=== PATIENT | female | born 1985 | race Hispanic/Latino ===

== ENCOUNTER 2021-02-09 21:39 | Emergency (ER) | payer OTHER ==
[2021-02-09 22:59] LABS: Absolute Lymphocytes (CBC) 1.2 K/uL (0.7-4.9); Basophils % 0.3 % (0-1.3); Hematocrit 33.2 % (36.0-45.0); Lymphocytes % 34.1 % (15.3-44.8); MPV 10.3 fL (7.6-11.3)
[2021-02-09 23:01] LABS: Protime INR 1.02
[2021-02-09] MEDS ORDERED: FAMOTIDINE 20 MG/2 ML VIAL IV ONE (23:01)
[2021-02-09] MEDS ORDERED: AZITHROMYCIN 500 MG INJ IVPB ONE (23:01)
[2021-02-09] MEDS ORDERED: ASPIRIN EC 81 MG TAB PO ONE (23:01)
[2021-02-09] MEDS ORDERED: NA CHLORIDE 0.9% 1,000 ML ONE (23:02)
[2021-02-09] MEDS ORDERED: NA CHLORIDE 0.9% 250 ML ONE (23:16)
[2021-02-09 23:28] LABS: Anisocytosis 1+; Blood Morphology Comment NOTED (NOT SEEN); Elliptocytes 1+; Hypochromasia 1+; Platelet Estimate ADEQ; Spherocyte 1+; White Blood Cell Scan OK (OK)
--- NOTE | 2021-02-10 01:30 | EDPHYS ---
Physician Documentation [facility] Name: Florencio Daly Age: 35 yrs Sex: Female : 1985 Arrival Date: 02/09/2021 Time: 21:44 Bed 10 Private MD: Chris Landon ED Physician Cam Faust HPI: 02/09 23:46 This 35 yrs old Female presents to ER via Ambulatory with complaints of tonny Dizziness, Diarrhea. 23:46 The patient presents with dizziness, generalized weakness, lightheadedness. Onset: The tonny symptoms/episode began/occurred 6 day(s) ago. Context: occurred at home. Modifying factors: The symptoms are alleviated by nothing. Associated signs and symptoms: The patient has no apparent associated signs or symptoms. Severity of symptoms: At their worst the symptoms were mild moderate in the emergency department the symptoms are unchanged. Patient's baseline: Neuro:. The patient has not experienced similar symptoms in the past. 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 - Social history:: Smoking status: Patient denies any tobacco usage or history of. - Family history:: not pertinent. ROS: 23:46 Constitutional: Negative for fever, chills, and weight loss, Eyes: Negative for injury, tonny pain, redness, and discharge, ENT: Negative for injury, pain, and discharge, Neck: Negative for injury, pain, and swelling, Cardiovascular: Negative for chest pain, palpitations, and edema, Back: Negative for injury and pain, : Negative for injury, bleeding, discharge, and swelling, MS/Extremity: Negative for injury and deformity, Skin: Negative for injury, rash, and discoloration, Neuro: Negative for headache, weakness, numbness, tingling, and seizure, Psych: Negative for depression, anxiety, suicide ideation, homicidal ideation, and hallucinations, Allergy/Immunology: Negative for hives, rash, and allergies, Endocrine: Negative for neck swelling, polydipsia, polyuria, polyphagia, and marked weight changes, Hematologic/Lymphatic: Negative for swollen nodes, abnormal bleeding, and unusual bruising. 23:46 Respiratory: Positive for cough, "sounds productive". 23:46 Abdomen/GI: Positive for diarrhea. Exam: 23:46 Constitutional: This is a well developed, well nourished patient who is awake, alert, tonny and in no acute distress. Head/Face: Normocephalic, atraumatic. Eyes: Pupils equal round and reactive to light, extra-ocular motions intact. Lids and lashes normal. Conjunctiva and sclera are non-icteric and not injected. Cornea within normal limits. Periorbital areas with no swelling, redness, or edema. ENT: Nares patent. No nasal discharge, no septal abnormalities noted. Tympanic membranes are normal and external auditory canals are clear. Oropharynx with no redness, swelling, or masses, exudates, or evidence of obstruction, uvula midline. Mucous membranes moist. Neck: Trachea midline, no thyromegaly or masses palpated, and no cervical lymphadenopathy. Supple, full range of motion without nuchal rigidity, or vertebral point tenderness. No Meningismus. Chest/axilla: Normal chest wall appearance and motion. Nontender with no deformity. No lesions are appreciated. Cardiovascular: Regular rate and rhythm with a normal S1 and S2. No gallops, murmurs, or rubs. Normal PMI, no JVD. No pulse deficits. Respiratory: Lungs have equal breath sounds bilaterally, clear to auscultation and percussion. No rales, rhonchi or wheezes noted. No increased work of breathing, no retractions or nasal flaring. Abdomen/GI: Soft, non-tender, with normal bowel sounds. No distension or tympany. No guarding or rebound. No evidence of tenderness throughout. Back: No spinal tenderness. No costovertebral tenderness. Full range of motion. Pelvic Exam: Normal external genitalia. Speculum exam with closed cervical os, no discharge or bleeding noted. Bimanual exam with normal adnexa, no adnexal or cervical motion tenderness. Normal uterus. Skin: Warm, dry with normal turgor. Normal color with no rashes, no lesions, and no evidence of cellulitis. MS/ Extremity: Pulses equal, no cyanosis. Neurovascular intact. Full, normal range of motion. Neuro: Awake and alert, GCS 15, oriented to person, place, time, and situation. Cranial nerves II-XII grossly intact. Motor strength 5/5 in all extremities. Sensory grossly intact. Cerebellar exam normal. Normal gait. Psych: Awake, alert, with orientation to person, place and time. Behavior, mood, and affect are within normal limits. 02/10 00:36 ECG was reviewed by the Attending Physician. tonny Vital Signs: 02/09 22:11 BP 137 / 97; Pulse 91; Resp 17; Temp 99(O); Pulse Ox 98% on R/A; Weight 127.91 kg; lp1 Height 5 ft. 891 in. (2415.54 cm); Pain 08/10; 02/10 04:55 BP 136 / 87; Pulse 87; Resp 16; Temp 98.2; Pulse Ox 98% ; lh3 02/09 22:11 Body Mass Index 0.22 (127.91 kg, 2415.54 cm) lp1 MDM: 02/09 22:07 Patient medically screened. tonny 23:53 Differential diagnosis: cardiac arrhythmia, CVA, generalized weakness, tonny hyperventilation, hypovolemia, idiopathic dizziness, near-syncope. Data reviewed: vital signs, nurses notes, lab test result(s), EKG, radiologic studies, plain films. Data interpreted: representative: rate is 91 beats/min, rhythm is regular, Pulse oximetry: on room air is 98 %. Test interpretation: by ED physician or midlevel provider: ECG, plain radiologic studies. Counseling: I had a detailed discussion with the patient and/or guardian regarding: the historical points, exam findings, and any diagnostic results supporting the discharge/admit diagnosis, lab results, radiology results, the need for outpatient follow up, for definitive care, a family practitioner, a stitching machine feeder or offbearer. 02/09 22:10 Order name: Basic Metabolic Panel [facility] 02/09 22:10 Order name: CBC with Diff [facility] 02/09 22:10 Order name: LFT's [facility] 02/09 22:10 Order name: Magnesium [facility] 02/09 22:10 Order name: NT PRO-BNP; Complete Time: 02:30 tonny 02/09 22:10 Order name: PT-INR; Complete Time: 23:46 [facility] 02/09 22:10 Order name: Troponin (emerg Dept Use Only); Complete Time: 02:30 [facility] 02/09 22:10 Order name: Ferritin; Complete Time: 02:30 [facility] 02/09 22:10 Order name: CRP; Complete Time: 02:30 [facility] 02/09 22:10 Order name: D-Dimer; Complete Time: 23:46 [facility] 02/09 22:10 Order name: Basic Metabolic Panel; Complete Time: 02:30 EDMS 02/09 22:10 Order name: CBC with Automated Diff; Complete Time: 23:46 EDMO 02/09 22:10 Order name: Liver (Hepatic) Function; Complete Time: 02:30 EDMS 02/09 22:10 Order name: Magnesium; Complete Time: 02:30 EDMO 02/09 22:10 Order name: XRAY Chest (1 view) [facility] 02/09 22:10 Order name: EKG; Complete Time: 22:11 [facility] 02/09 22:10 Order name: Cardiac monitoring [facility] 02/09 22:10 Order name: EKG - Nurse/Tech; Complete Time: 00:22 [facility] 02/09 22:10 Order name: IV Saline Lock; Complete Time: 00:22 [facility] 02/09 23:06 Order name: CBC Smear Scan; Complete Time: 23:46 EDMO 02/09 23:46 Order name: INCENTIVE SPIROMETRY [facility] 02/10 00:55 Order name: SARS-COV-2 RT PCR; Complete Time: 01:28 EDMO 02/09 22:10 Order name: Labs collected and sent; Complete Time: 00:22 [facility] 02/09 22:10 Order name: O2 Per Protocol; Complete Time: 00:22 [facility] 02/09 22:10 Order name: O2 Sat Monitoring; Complete Time: 00:22 [facility] 02/09 22:10 Order name: Urine Dipstick-Ancillary (obtain specimen) [facility] 02/09 22:10 Order name: Urine Test (obtain specimen) [facility] EC/13 00:36 Rate is 84 beats/min. Rhythm is regular. QRS [place] is Normal. IA interval is normal. QRS tonny interval is normal. QT interval is normal. No Q waves. T waves are Normal. No ST changes noted. Clinical impression: NSR w/ Non-specific ST/T Changes and No evidence of ischemia. Interpreted by me. Reviewed by me. Administered Medications: 02/09 22:50 Drug: Aspirin Chewable Tablet 324 mg Route: PO; lh3 02/10 04:46 Follow up: Response: No adverse reaction [facility] 02/09 22:51 Drug: NS 0.9% 1000 ml Route: IV; Rate: 125 ml/hr; Site: right hand; [facility] 02/10 04:47 Follow up: IV Status: Completed infusion; IV Intake: 500ml [facility] 02/09 22:51 Drug: Zithromax (azithromycin) 500 mg Route: IVPB; Infused Over: 1 hrs; Site: right [facility] hand; 02/10 04:46 Follow up: IV Status: Completed infusion [facility] 02/09 22:51 Drug: Pepcid (famotidine) 40 mg Route: IVP; Site: right hand; [facility] 02/10 04:46 Follow up: Response: No adverse reaction [facility] 02:58 Drug: REGEN-COV Dose Pack 120 mg/mL-120 mg/mL (EUA) 1 vials Route: IV; Rate: per [facility] protocol; Site: right hand; 04:45 Follow up: IV Status: Completed infusion; IV Intake: 250ml [facility] Disposition Summary: 02/10/21 01:30 Discharge Ordered Location: Home [facility] Problem: new tonny Symptoms: have improved tonny Condition: Stable tonny Diagnosis - Coronavirus infection, unspecified tonny - Cough tonny - Diarrhea, unspecified tonny Followup: tonny - With: - When: 2 - 3 days - Reason: Recheck today's complaints, Continuance of care, Re-evaluation by your physician Followup: tonny - With: - When: 2 - 3 days - Reason: Recheck today's complaints, Re-evaluation by your physician Discharge Instructions: - Discharge Summary Sheet [facility] - Food Choices to Help Relieve Diarrhea, Adult tonny - Diarrhea, Adult tonny - Cool Mist Vaporizer tonny - How to Use an Incentive Spirometer tonny - Diarrhea, Adult, [id number] tonny - Cough, Adult, [id number] tonny - Aspirin and Your Heart tonny - Cough, Adult tonny - COVID-19 [facility] Forms: - Medication Reconciliation Form [facility] - Thank You Letter tonny - Antibiotic Education tonny - Prescription Opioid Use [facility] Prescriptions: - ivermectin 3 mg Oral tablet - take 4 tablet by ORAL route once daily; 20 tablet; Refills: 0, Product tonny Selection Permitted - Pepcid 20 mg Oral Tablet - take 1 tablet by ORAL route every 12 hours for 15 days; 30 tablet; Refills: 0, tonny Product Selection Permitted - albuterol sulfate 90 mcg/actuation Inhalation HFA aerosol inhaler - inhale 2 puff by INHALATION route every 6 hours; 1 Pump; Refills: 0, Product tonny Selection Permitted - Bromfed DM 2-30-10 mg/5 mL Oral syrup - take 10 milliliter by ORAL route every 4-6 hours; 210 milliliter; Refills: 0, [facility] Product Selection Permitted - Zithromax 500 mg Oral Tablet - take 1 tablet by ORAL route once daily for 5 days; 5 tablet; Refills: 0, [facility] Product Selection Permitted Signatures: Dispatcher [employer] EDMS Cam Faust MD MD cha Pena, Laura RN RN lp1 Sarah Tony RN RN lh3 Corrections: (The following items were deleted from the chart) 02/09 23:04 22:35 CORONAVIRUS+BRZ ordered. EDMS EDMS
--- NOTE | 2021-02-10 01:30 | ER ---
Nurse's Notes [facility] Name: Florencio Dlay Age: 35 yrs Sex: Female : 1985 Arrival Date: 02/09/2021 Time: 21:44 Bed 10 Private MD: Chris Landon Diagnosis: Coronavirus infection, unspecified;Cough;Diarrhea, unspecified Presentation: 02/09 22:09 Chief complaint: Patient states: I have dizziness and have had diarrhea for about 5 lp1 days. My tested positive for covid. Coronavirus screen: Client denies travel out of the [place] in the last 14 days. Client presents with at least one sign or symptom that may indicate coronavirus-19. Standard/surgical mask placed on the client. Ebola Screen: Patient negative for fever greater than or equal to 101.5 degrees Fahrenheit, and additional compatible Ebola Virus Disease symptoms Patient denies exposure to infectious person. Patient denies travel to an Ebola-affected area in the 21 days before illness onset. Initial Sepsis Screen: Does the patient meet any 2 criteria?. Risk Assessment: Do you want to hurt yourself or someone else? Patient reports no desire to harm self or others. Onset of symptoms was February 04, 2021. 22:09 Method Of Arrival: Ambulatory lp1 22:09 Acuity: KERI 3 lp1 02/10 04:56 Initial Sepsis Screen: Does the patient have a suspected source of infection? No. lh3 Patient's initial sepsis screen is negative. Triage Assessment: 04:55 General: Appears in no apparent distress. Behavior is calm, cooperative. Pain: Denies lh3 pain. GI: No deficits noted. 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 - Social history:: Smoking status: Patient denies any tobacco usage or history of. - Family history:: not pertinent. Screenin/13 04:54 Abuse screen: Denies threats or abuse. Nutritional screening: No deficits noted. 3 Tuberculosis screening: No symptoms or risk factors identified. Fall Risk IV access (20 points). Vital Signs: 02/09 22:11 BP 137 / 97; Pulse 91; Resp 17; Temp 99(O); Pulse Ox 98% on R/A; Weight 127.91 kg; lp1 Height 5 ft. 891 in. (2415.54 cm); Pain 2/10; 02/10 04:55 BP 136 / 87; Pulse 87; Resp 16; Temp 98.2; Pulse Ox 98% ; lh3 02/09 22:11 Body Mass Index 0.22 (127.91 kg, 2415.54 cm) lp1 ED Course: 02/09 21:44 Patient arrived in ED. es 21:45 Chris Landon MD is Private Physician. es 22:07 Cam Faust MD is Attending Physician. tonny 22:10 Triage completed. lp1 22:12 Arm band placed on right wrist. lp1 22:30 XRAY Chest (1 view) In Process Unspecified. EDMS 02/10 00:00 No provider procedures requiring assistance completed. Inserted saline lock: 22 gauge lh3 in right hand, using aseptic technique. 00:31 Sarah Tony, JANEL is Primary Nurse. 3 01:29 Chris Landon MD is Referral Physician. [facility] 01:29 Gelacio Hernandez MD is Referral Physician. tonny 04:54 Patient has correct armband on for positive identification. 3 04:56 IV discontinued, bleeding controlled. [facility] Administered Medications: 02/09 22:50 Drug: Aspirin Chewable Tablet 324 mg Route: PO; [facility] 02/10 04:46 Follow up: Response: No adverse reaction [facility] 02/09 22:51 Drug: NS 0.9% 1000 ml Route: IV; Rate: 125 ml/hr; Site: right hand; [facility] 02/10 04:47 Follow up: IV Status: Completed infusion; IV Intake: 500ml [facility] 02/09 22:51 Drug: Zithromax (azithromycin) 500 mg Route: IVPB; Infused Over: 1 hrs; Site: right 3 hand; 02/10 04:46 Follow up: IV Status: Completed infusion [facility] 02/09 22:51 Drug: Pepcid (famotidine) 40 mg Route: IVP; Site: right hand; 3 02/10 04:46 Follow up: Response: No adverse reaction 3 02:58 Drug: REGEN-COV Dose Pack 120 mg/mL-120 mg/mL (EUA) 1 vials Route: IV; Rate: per [facility] protocol; Site: right hand; 04:45 Follow up: IV Status: Completed infusion; IV Intake: 250ml 3 Intake: 04:45 IV: 250ml; Total: 250ml. 3 04:47 IV: 500ml; Total: 750ml. 3 Outcome: 01:30 Discharge ordered by MD. [place] 04:54 Discharged to home ambulatory. [facility] 04:54 Condition: stable 04:54 Discharge instructions given to patient, Instructed on discharge instructions, medication usage, Demonstrated understanding of instructions, medications. 04:57 Patient left the ED. 3 Signatures: Dispatcher [employer] Cam Kathleen MD MD cha Salyer, Kitty Pablo RN RN lp1 Sarah Tony RN RN lh3
[2021-02-10 01:57] LABS: ALT/SGPT 20 U/L (12-78); AST/SGOT 16 U/L (15-37); Albumin 3.2 g/dL (3.4-5.0); Alkaline Phosphatase 101 U/L (45-117); BUN Blood Urea Nitrogen 7 mg/dL (7-18); Bicarbonate 25 mmol/L (21-32); Bilirubin Direct < 0.1 mg/dL (0-0.2); Bilirubin Total 0.2 mg/dL (0.2-1.0); C-Reactive Protein 3.54 mg/L (<3.00); Ferritin 103.5 ng/mL (8-388); Glucose Level 86 mg/dL (74-106); Magnesium 2.1 mg/dL (1.8-2.4); NT PRO-BNP 9 pg/mL (<125); Potassium 3.6 mmol/L (3.5-5.1); Protein, Total 6.7 g/dL (6.4-8.2); Sodium Level 142 mmol/L (136-145); Troponin (Emerg Dept Use Only) < 0.02 ng/mL (0.0-0.045)
[2021-02-10] MEDS ORDERED: NA CHLORIDE 0.9% 50 ML ONE (02:22)
[2021-02-10] MEDS ORDERED: NA CHLORIDE 0.9% 250 ML ONE ×2 (02:22→02:54)
[2021-02-10] MEDS ORDERED: CASIRIVIMAB/IMDEVIMAB 10 ML VIAL ONE (02:22)
[2021-02-10 05:08] VITALS: O2SAT 98
[2021-02-10 05:09] VITALS: BP 136/87; TEMP 98.2
--- NOTE | 2021-02-10 08:49 | RAD REPORT ---
EXAM DESCRIPTION: RAD - Chest Single View - 02/09/2021 10:29 pm CLINICAL HISTORY: COUGH Chest pain. COMPARISON: No comparisons FINDINGS: Portable technique limits examination quality. The lungs are grossly clear. The heart is normal in size. No displaced fractures. IMPRESSION: No acute intrathoracic process suspected.
== END 2021-02-10 04:57 | disposition home or self-care (01) ==
LOC: ER 21:39
DX: U07.1 COVID-19 (principal); R05 Cough; R19.7 Diarrhea, unspecified
CPT/HCPCS: 96365; 93005; 85025; 80048; 36415; 83735; 85610; 85379; 80076; 84484; 82728; 83880; 86140; 71045; 96375; 99283; 96366; U0003; J0456; J7050 ×3; J7030